=== PATIENT | male | born 1995 | race Caucasian/White ===

== ENCOUNTER 2022-04-03 13:33 | Emergency (ER) | payer MEDICAID ==
[~2022-04-03] VITALS: Ht 177.8 cm; Wt 70.3 kg
[2022-04-03 13:42] VITALS: BP 111/64
[2022-04-03] MEDS ORDERED: KETOROLAC 30 MG/ML VIAL IM ONE ×2 (13:45→14:10)
[2022-04-03] MEDS ORDERED: ACETAMINOPHEN EXTRA STRENGTH 500 MG TAB PO ONE (14:10)
[2022-04-03] MEDS ORDERED: METOCLOPRAMIDE 10 MG TAB PO ONE (14:15)
[2022-04-03] MEDS ORDERED: diphenhydrAMINE 50 MG CAP PO ONE (14:15)
--- NOTE | 2022-04-03 14:27 | NUR ---
PT AMBULATED TO BED 07.
--- NOTE | 2022-04-03 14:45 | NUR ---
26 Y/O MALE BIB BROTHER C/O FEVER, BODY ACHES X2 DAYS. PT DENIES ANY SICK HOUSEHOLD MEMBERS. PT STATES HE HAD A COVID TEST YESTERDAY WHICH WAS NEGATIVE. PT DENIES CHEST PAIN, SOB. PT DENIES N,V,D. LUNGS CTA. BED LOCKED IN LOWEST POSITION. BED RAIL X1. PMH: DENIES
--- NOTE | 2022-04-03 15:11 | NUR ---
Flu swab taken and walked to lab
--- NOTE | 2022-04-03 15:28 | NUR ---
TANIKA PEREZ AT PT BEDSIDE
[2022-04-03] MEDS ORDERED: ACET-1195 PO (15:38)
[2022-04-03] MEDS ORDERED: IBUP-2218 PO (15:38)
[2022-04-03 15:45] VITALS: BP 101/52
--- NOTE | 2022-04-03 15:46 | NUR ---
Patient discharged with v/s stable. Written and verbal after care instructions given and explained. Patient alert, oriented and verbalized understanding of instructions. Ambulatory with steady gait. All questions addressed prior to discharge. ID band removed. Patient advised to follow up with PMD. Rx of ACETAMINOPHEN, IBUPROFEN given. Patient educated on indication of medication including possible reaction and side effects. Opportunity to ask questions provided and answered.
== END 2022-04-03 15:46 | disposition home or self-care (01) ==
LOC: MED 13:33
DX: B34.9 Viral infection, unspecified (principal); M79.18 Myalgia, other site; Z79.899 Other long term (current) drug therapy; Z79.1 Long term (current) use of non-steroidal anti-inflammatories (NSAID)
CPT/HCPCS: 87804; 96372; 99284; J1885; J8597; Q0163